=== PATIENT | female | born 1990 | race Caucasian/White ===

== ENCOUNTER 2023-01-12 20:54 | Emergency (ER) | payer OTHER ==
[~2023-01-12] VITALS: Ht 162.6 cm; Wt 65.8 kg
[2023-01-12 20:54] VITALS: BP 103/62; PULSE 78; RESP 16; TEMP 97.8; O2SAT 98
[2023-01-12 21:46] LABS: APPEARANCE,URINE CLEAR (CLEAR); BILIRUBIN,URINE NEGATIVE (NEGATIVE); BLOOD, URINE NEGATIVE (NEGATIVE); COLOR,URINE YELLOW (YELLOW); LEUKOCYTE ESTERASE ,URINE NEGATIVE (NEGATIVE); NITRITE, URINE POSITIVE (NEGATIVE); PH,URINE 6.5 (5.0-9.0); PROTEIN,URINE 2+ (NEGATIVE); UGLUCOSE NEGATIVE (NEGATIVE); UROBILINOGEN,URINE 0.2 EU/dL (0.2 - 1)
[2023-01-12 21:53] VITALS: BP 103/62; PULSE 79; RESP 18; O2SAT 97
[2023-01-12] MEDS ORDERED: LOPERAMIDE 2 MG CAP PO ONE (22:15)
[2023-01-12] MEDS ORDERED: FAMOTIDINE 20 MG/2 ML VIAL IVP ONE (22:15)
[2023-01-12 22:44] LABS: BASOPHILS % (AUTO) 0.1 % (0.0-2.0); HEMATOCRIT 42.8 % (36-48); HEMOGLOBIN 14.1 g/dL (12.0-16.0); LYMPHOCYTES # (AUTO) 0.6 K/uL (2.5-16.5); LYMPHOCYTES % (AUTO) 6.1 % (20.5-51.1); MEAN CORPUSCULAR HEMOGLOBIN 29 pg (27-31); MEAN CORPUSCULAR HGB CONC 33 g/dL (33-37); MEAN CORPUSCULAR VOLUME 86.5 fL (80-94); MONOCYTES # (AUTO) 0.4 K/uL (0.8-1.0); NEUTROPHILS # (AUTO) 8.5 K/uL (1.8-7.7); NEUTROPHILS % (AUTO) 89.8 % (42.2-75.2); PLATELET COUNT (AUTO) 237 K/uL (140-450); RED BLOOD CELL COUNT(AUTO) 4.95 MIL/uL (4.20-5.40); RED CELL DISTRIBUTION WIDTH 13.8 % (11.6-13.7); WHITE BLOOD COUNT (AUTO) 9.5 K/uL (4.8-10.8)
[2023-01-12 22:59] LABS: ALBUMIN 3.3 g/dL (3.4-5.0); ANION GAP 12.7 (8-16); CALCIUM 7.6 mg/dL (8.5-10.1); CARBON DIOXIDE 25.2 mmol/L (21-32); CREATININE 0.7 mg/dL (0.6-1.3); TOTAL BILIRUBIN 0.2 mg/dL (0.0-1.0); TOTAL PROTEIN, SERUM 6.8 g/dL (6.4-8.2)
[2023-01-12 23:01] LABS: POTASSIUM 2.9 mmol/L (3.5-5.1)
[2023-01-12] MEDS ORDERED: POTASSIUM CHLORIDE 20% 40 MEQ/15 ML UDC PO ONE (23:05)
[2023-01-12] MEDS ORDERED: LOPE-202 PO (23:09)
[2023-01-12] MEDS ORDERED: FAMO-90 PO (23:09)
[2023-01-12] MEDS ORDERED: ONDA-188 SL (23:09)
[2023-01-12] MEDS ORDERED: CEPH-588 PO (23:09)
== END 2023-01-12 23:27 | disposition home or self-care (01) ==
LOC: MED 20:54
DX: N39.0 Urinary tract infection, site not specified (principal); E87.6 Hypokalemia; R19.7 Diarrhea, unspecified; Z79.899 Other long term (current) drug therapy
CPT/HCPCS: 36415; 80053; 81003; 81025; 83690; 85025; 96374; 99283; J3490